=== PATIENT | male | born 1955 | race Caucasian/White ===

== ENCOUNTER 2021-04-08 08:53 | Emergency (ER) | payer OTHER, SELFPAY ==
--- NOTE | ~2021-04-08 | XR_ITS ---
EXAMINATION: XR chest 1V portable DATE: 04/08/2021 09:46 INDICATION: Shortness of breath. Epigastric abdominal pain. TECHNIQUE: A single frontal view of the chest was obtained on 2 radiographs. COMPARISON: CT abdomen 01/21/2008 FINDINGS: The chest demonstrates clear lungs without pneumonia, pleural effusion, or pneumothorax. Th e heart size is normal. IMPRESSION: 1. No acute cardiopulmonary disease. Reviewed, dictated and finalized at location B. ANDROID DEVELOPER
[2021-04-08 08:58] VITALS: BP 168/94; PULSE 76; RESP 21; TEMP 36.6; O2SAT 98
[2021-04-08 09:07] VITALS: PULSE 76
--- NOTE | 2021-04-08 09:18 | ECG_ITS ---
Measurements Intervals [place] Rate: 80 P: 106 UT: 181 QRS: 21 QRSD: 98 T: 23 QT: 359 QTc: 417 Interpretive Statements SINUS RHYTHM BORDERLINE R WAVE PROGRESSION, ANTERIOR LEADS BORDERLINE T WAVE ABNORMALITY- INFERIOR LEADS BASELINE ARTIFACT- I, II, III, AVR, AVL, AVF, V3-V6 BORDERLINE ECG Electronically Signed On 04-08-2021 16:51:08 MANAGER MEDICAL DEVICE by Mingo Thomas D.O.
[2021-04-08 09:37] LABS: Basophils Absolute Auto 0.1 K/mm3 (0.0-0.1); Basophils Percent Auto 0.7 % (0.2-1.2); Eosinophils Absolute Auto 0.2 K/mm3 (0-0.3); Eosinophils Percent Auto 1.8 % (0-4.4); Hematocrit 47.5 % (42.0-52.0); Hemoglobin 16.5 g/dL (14.0-18.0); Immature Granulocyte Absolute 0.04 K/mm3 (0.00-0.031); Immature Granulocyte Percent A 0.3 % (0-0.5); Lymphocytes Absolute Auto 4.56 K/mm3 (0.9-3.2); Lymphocytes Percent Auto 34.2 % (18.3-44.2); Mean Corpuscular HGB Conc 34.7 g/dl (32-36); Mean Corpuscular Hemoglobin 34.2 pg (26-34); Mean Corpuscular Volume 98.5 fl (80-100); Mean Platelet Volume 10.5 fl (7.4-10.4); Monocytes Absolute Auto 0.8 K/mm3 (0.1-0.6); Monocytes Percent Auto 5.8 % (2.6-8.5); Neutrophils Absolute Auto 7.6 K/mm3 (1.3-6.7); Neutrophils Percent Auto 57.2 % (45.5-73.1); Platelet Count Result 253 k/mm3 (150-375); Red Blood Count 4.82 M/mm3 (4.6-6.20); Red Cell Distribution Width 12.8 % (11.5-14.5); White Blood Count 13.3 K/mm3 (4.5-10.0)
[2021-04-08] MEDS: ASPIRIN 81 MG CHEWABLE TABLET 324 MG PO (09:46)
[2021-04-08 10:00] LABS: Alanine Aminotransferase 36 U/L (4-50); Albumin Level 4.1 g/dL (3.5-5.1); Alkaline Phosphatase 102 U/L (38-126); Anion Gap 9 mmol/L (8-16); Aspartate Amino Transferase 37 U/L (17-59); Bilirubin,Total 0.7 mg/dL (0.2-1.3); Blood Urea Nitrogen 15 mg/dL (9-20); Calcium 9.1 mg/dL (8.4-10.2); Carbon Dioxide 24 mmol/L (22-30); Chloride 104 mmol/L (98-107); Estimated CRCL calculation 96 ml/min; Estimated Glomerular Filt Rate > 60; Glucose 108 mg/dL (65-110); Sodium 137 mmol/L (137-145)
[2021-04-08 10:11] LABS: NT Pro B Type Natriuretic Pept 184 pg/mL (5-100); Troponin I < 0.012 ng/mL (0.000-0.034)
[2021-04-08 10:26] LABS: Add Urine Microscopic? YES; Appearance Urine Clear (Clear); Bilirubin Urine Negative (Negative); Blood Urine 1+ (Negative); Color Urine Yellow (Yellow); Glucose Urine UA Negative (Negative); Ketones Urine Trace mg/dL (Negative); Leukocyte Esterase Ur Negative LEU/UL (Negative); Mucus Urine Rare /lpf; Nitrate Urine Negative (Negative); Protein Urine 1+ mg/dL (Negative); RBC Urine 21-50 /hpf (0-2); Specific Grav Ur 1.019 (1.001-1.035); Squamous Epithelial Cell Urine Rare /hpf (Few); WBC Urine 0-3 /hpf
[2021-04-08 10:27] VITALS: BP 168/92; PULSE 67; RESP 22; O2SAT 99
--- NOTE | 2021-04-08 10:33 | ED.GENADULT ---
HPI - General Adult General Chief complaint: Shortness of Breath/Dyspnea <Katty Lechuga PA-C - Last Filed: 04/08/21 15:36> Stated complaint: chest pain <Katty Lechuga PA-C - Last Filed: 04/08/21 15:36> Time Seen by Provider: 04/08/21 09:09 <Katty Lechuga PA-C - Last Filed: 04/08/21 15:36> Source: patient and family () <Katty Lechuga PA-C - Last Filed: 04/08/21 15:36> Mode of arrival: ambulatory <TEVIN Rush Last Filed: 04/08/21 15:36> Limitations: no limitations <Katty Lechuga PA-C - Last Filed: 04/08/21 15:36> History of Present Illness HPI narrative: Patient is a 65 yo male with CC of midsternal chest pain with pressure like sensation that began at 8am. He reports the pain is not present at this time, but the pressure is still present. He denies radiation of pain. Denies hx of htn, [place], or stroke. He has not taken anything to alleviate his symptoms. He reports when the episode first began he was diaphoretic, but that subsided after a few minutes. He reports he is allergic to naproxen, so he thought he was allergic to aspirin because he thought they were the same thing. <Katty Lechuga PA-C - Last Filed: 04/08/21 15:36> Related Data Home medications: Home Medications Medication Instructions Recorded Confirmed No Home Medications 04/08/21 04/08/21 <TEVIN Rush Last Filed: 04/08/21 15:36> Allergies/adverse reactions: Allergies Allergy/AdvReac Type Severity Reaction Status Date / Time aspirin Allergy Mild Swelling Verified 07/30/08 14:30 naproxen AdvReac Abdominal Verified 04/08/21 09:18 Pain [place] Allergy Mild Unknown Uncoded 04/08/21 09:18 <TEVIN Rush Last Filed: 04/08/21 15:36> Review of Systems Review of Systems: CONSTITUTIONAL: Denies fever, chills, or sweats. EYES: Denies visual changes, redness, or discharge. ENT: Denies rhinorrhea, congestion, sore throat, or otalgia. CARDIOVASCULAR:Reports chest pain/pressure , Denies palpitations, or edema. RESPIRATORY: Denies cough GASTROINTESTINAL: Denies abdominal pain, nausea, vomiting, or diarrhea. GENITOURINARY: Denies dysuria or hematuria. SKIN: Denies rash or itching. MUSCULOSKELETAL: Denies back pain, joint pain, or myalgia. NEUROLOGIC: Denies headache, numbness, dizziness, or weakness. PSYCHIATRIC: Denies anxiety or depression. <Katty Lechuga PA-C - Last Filed: 04/08/21 15:36> Exam Narrative: GENERAL: Well-appearing, well-nourished, and in no acute distress or discomfort. HEAD: Normocephalic, atraumatic. EYES: PERRLA and EOMI. ENT: Nares clear, no rhinorrhea or epistaxis. Mucous membranes moist. Oropharynx without tonsillar hypertrophy exudate or other lesions. Bilateral TMs pearly davis nonbulging NECK: Supple. No adenopathy or masses. CHEST: Clear to auscultation. Not tender to palpation. No respiratory distress. No wheezes rales or rhonchi HEART: Regular rate and rhythm. No murmur heard. Normal peripheral pulses. EXTREMITIES: Normal range of motion. No edema. SKIN: Warm, dry, no rash. NEURO: No focal deficits. Alert and oriented x3. PSYCH: Normal mood and affect. <Katty Lechuga PA-C - Last Filed: 04/08/21 15:36> Course Vital Signs Vital signs: Vital Signs Temperature 97.8 F 04/08/21 08:58 Pulse Rate 76 04/08/21 08:58 Respiratory Rate 21 H 04/08/21 08:58 Blood Pressure 168/94 H 04/08/21 08:58 Pulse Oximetry 98 04/08/21 08:58 Temperature 97.8 F 04/08/21 08:58 Pulse Rate 61 04/08/21 13:40 Respiratory Rate 16 04/08/21 13:40 Blood Pressure 162/91 H 04/08/21 13:40 Pulse Oximetry 100 04/08/21 13:40 <Katty Lechuga PA-C - Last Filed: 04/08/21 15:36> Medical Decision Making MDM Narrative Medical decision making narrative: Patient has been without distress in emergency department. Patient's initial troponin and delta troponin are negative. Patient states that his discomfort has res
[2021-04-08 10:42] LABS: Amphetamine Screen Urine Negative (Negative); Barbiturate Screen Urine Negative (Negative); Benzodiazepines Screen Urine Negative (Negative); Cannabinoid Screen Urine Negative (Negative); Cocaine Screen Urine Negative (Negative); Methadone Screen Urine Negative (Negative); Opiate Screen Urine Negative (Negative); Phencyclidine Screen Urine Negative (Negative)
[2021-04-08 12:06] VITALS: BP 148/86; PULSE 69; RESP 19; O2SAT 99
[2021-04-08 12:46] LABS: Troponin I < 0.012 ng/mL (0.000-0.034)
[2021-04-08 13:40] VITALS: BP 162/91; PULSE 61; RESP 16; O2SAT 100
== END 2021-04-08 13:40 | disposition home or self-care (01) ==
PROVIDERS: Physician Assistant; Emergency Provider General Practice
DX: R07.2 Precordial pain (principal); R94.31 Abnormal electrocardiogram [ECG] [EKG]
CPT/HCPCS: 36415; 71045; 80053; 80307; 81001; 83880; 84484; 85025; 93005; 99284; A9270

== ENCOUNTER 2021-06-04 16:27 | Emergency (ER) | payer OTHER, SELFPAY ==
[2021-06-04 16:36] VITALS: BP 167/95; PULSE 80; RESP 16; TEMP 37; O2SAT 100
--- NOTE | 2021-06-04 17:05 | ED.ALLEREA ---
HPI - Allergic Reaction General Chief complaint: Allergic Reaction Stated complaint: allergic reaction to clinda?? Time Seen by Provider: 06/04/21 16:52 History of Present Illness HPI narrative: Patient presents to the emergency room with an acute onset of pruritic rash on his torso that started today. Patient states he has been on clindamycin 4 times daily for 1 week for an infected tooth. Denies shortness of breath difficulty breathing chest pain. Related Data Home Medications Medication Instructions Recorded Confirmed hydrocodone-acetaminophen 06/04/21 Allergies Allergy/AdvReac Type Severity Reaction Status Date / Time aspirin Allergy Mild Swelling Verified 07/30/08 14:30 naproxen AdvReac Abdominal Verified 04/08/21 09:18 Pain Yellow [place]et Allergy Mild Unknown Uncoded 04/08/21 09:18 Review of Systems Review of Systems: CONSTITUTIONAL: Denies fever, chills, or sweats. EYES: Denies visual changes, redness, or discharge. ENT: Denies rhinorrhea, congestion, sore throat, or otalgia. CARDIOVASCULAR: Denies chest pain, palpitations, or edema. RESPIRATORY: Denies cough or dyspnea. GASTROINTESTINAL: Denies abdominal pain, nausea, vomiting, or diarrhea. GENITOURINARY: Denies dysuria or hematuria. SKIN: Per HPI. MUSCULOSKELETAL: Denies back pain, joint pain, or myalgia. NEUROLOGIC: Denies headache, numbness, dizziness, or weakness. PSYCHIATRIC: Denies anxiety or depression. Exam Narrative: GENERAL: Well-appearing, well-nourished, and in no acute distress. HEAD: Normocephalic, atraumatic. EYES: PERRLA and EOMI. ENT: Nares clear, no rhinorrhea or epistaxis. Mucous membranes moist. Oropharynx without tonsillar hypertrophy exudate or other lesions. Bilateral TMs pearly davis nonbulging NECK: Supple. No adenopathy or masses. No carotid bruits or JVD CHEST: Clear to auscultation. No respiratory distress. No wheezes rales or rhonchi HEART: Regular rate and rhythm. No murmur heard. Normal peripheral pulses. ABDOMEN: Soft, nontender, nondistended, normal active bowel sounds. EXTREMITIES: Normal range of motion. No edema. SKIN: Diffuse erythematous maculopapular hives to anterior torso. NEURO: No focal deficits. Alert and oriented x3. PSYCH: Normal mood and affect. Course Course Emergency Course: Patient presented with urticaria to the chest status post 1 week of clindamycin use inserted IV given we will fluids given Benadryl Solu-Medrol and famotidine for allergic reaction patient tolerated well rash is resolved we will send patient home on prescription for prednisone and Benadryl. Vital Signs Vital signs: Vital Signs Temperature 37.0 C 06/04/21 16:36 Pulse Rate 80 06/04/21 16:36 Respiratory Rate 16 06/04/21 16:36 Blood Pressure 167/95 H 06/04/21 16:36 Pulse Oximetry 100 06/04/21 16:36 Temperature 37.0 C 06/04/21 16:36 Pulse Rate 80 06/04/21 16:36 Respiratory Rate 16 06/04/21 16:36 Blood Pressure 167/95 H 06/04/21 16:36 Pulse Oximetry 100 06/04/21 16:36 MDM - Allergic Reaction MDM Narrative Medical decision making narrative: Patient responded well to Solu-Medrol Benadryl famotidine. We will send patient home on 5-day course of prednisone Benadryl. Demonstrated no shortness of breath difficulty breathing Lab Data Result diagrams: 06/04/21 17:50 06/04/21 17:50 Labs: Lab Results 06/04/21 06/04/21 Range/Units 17:50 17:50 WBC Pending RBC Pending Hgb Pending Hct Pending MCV Pending MCH Pending MCHC Pending RDW Pending Plt Count Pending MPV Pending Immature Gran % (Auto) Pending Neut % (Auto) Pending Lymph % (Auto) Pending [place] % (Auto) Pending Eos % (Auto) Pending Baso % (Auto) Pending Lymph # (Auto) Pending [place] # (Auto) Pending Eos # (Auto) Pending Baso # (Auto) Pending Abs Immat Gran (auto) Pending Absolute Neuts (auto) Pending Absolute Nuclea
[2021-06-04] MEDS: methylPREDNISolone SOD SUCC 125 MG VIAL IV PUSH (17:34)
[2021-06-04] MEDS: diphenhydrAMINE HCl INJ 50 MG/ML VIAL 25 MG IV PUSH (17:34)
[2021-06-04] MEDS: FAMOTIDINE 20 MG/2 ML VIAL IV PUSH (17:35)
[2021-06-04] MEDS: SODIUM CHLORIDE 0.9% IV 1,000 ML 999 ML IV CONT (17:36)
[2021-06-04 18:06] LABS: Basophils Absolute Auto 0.1 K/mm3 (0.0-0.1); Basophils Percent Auto 0.6 % (0.2-1.2); Eosinophils Absolute Auto 0.3 K/mm3 (0-0.3); Eosinophils Percent Auto 2.4 % (0-4.4); Hematocrit 50.3 % (42.0-52.0); Hemoglobin 17.4 g/dL (14.0-18.0); Immature Granulocyte Absolute 0.05 K/mm3 (0.00-0.031); Immature Granulocyte Percent A 0.4 % (0-0.5); Lymphocytes Absolute Auto 6.16 K/mm3 (0.9-3.2); Lymphocytes Percent Auto 45.5 % (18.3-44.2); Mean Corpuscular HGB Conc 34.6 g/dl (32-36); Mean Corpuscular Hemoglobin 34.9 pg (26-34); Mean Platelet Volume 10.3 fl (7.4-10.4); Monocytes Absolute Auto 0.8 K/mm3 (0.1-0.6); Monocytes Percent Auto 6.1 % (2.6-8.5); Neutrophils Absolute Auto 6.1 K/mm3 (1.3-6.7); Platelet Count Result 249 k/mm3 (150-375); Red Blood Count 4.98 M/mm3 (4.6-6.20); Red Cell Distribution Width 13.7 % (11.5-14.5); White Blood Count 13.5 K/mm3 (4.5-10.0)
[2021-06-04 18:16] LABS: Alanine Aminotransferase 35 U/L (4-50); Albumin Level 4.2 g/dL (3.5-5.1); Alkaline Phosphatase 85 U/L (38-126); Anion Gap 8 mmol/L (8-16); Aspartate Amino Transferase 37 U/L (17-59); Bilirubin,Total 1.1 mg/dL (0.2-1.3); Blood Urea Nitrogen 13 mg/dL (9-20); Calcium 9.2 mg/dL (8.4-10.2); Carbon Dioxide 23 mmol/L (22-30); Chloride 105 mmol/L (98-107); Estimated CRCL calculation 99 ml/min; Estimated Glomerular Filt Rate > 60; Glucose 98 mg/dL (65-110); Potassium 3.6 mmol/L (3.4-5.0); Sodium 136 mmol/L (137-145)
[2021-06-04 18:41] VITALS: BP 148/82; PULSE 72; RESP 18; O2SAT 97
== END 2021-06-04 18:41 | disposition home or self-care (01) ==
PROVIDERS: Emergency Provider Nurse Practitioner Family
DX: L50.0 Allergic urticaria (principal); T36.8X5A Adverse effect of other systemic antibiotics, initial encounter
CPT/HCPCS: 36415; 80053; 85025; 96361; 96374; 96375; 99284; J1200; J2930; J7030

== ENCOUNTER 2023-05-04 14:50 | Outpatient (CLI) | payer MEDICARE, SELFPAY ==
--- NOTE | ~2023-05-04 | CT_ITS ---
EXAMINATION: CT abdomen pelvis wo con DATE: 05/04/2023 15:18 INDICATION: Left flank pain TECHNIQUE: Computed tomography (CT) of the abdomen and pelvis was performed without intravenous contr ast. The dose-length product (DLP) was 810.47 mGy-cm. Automated exposure control and iterative recons truction technique were employed. COMPARISON: 01/21/2008 FINDINGS: There is an area of chronic scarring in the lingula. The heart size is normal. Changes of c holecystectomy are noted. There is a 7 mm cyst in the left hepatic lobe. The spleen, pancreas, and ad renal glands are normal. The right kidney is unremarkable. There are nonobstructing stones of the lef t kidney measuring 4 mm and 6 mm. There is a 5 cm peripelvic cyst of the left kidney. There are no st ones in the ureters or bladder. No hydronephrosis or hydroureter. No pathologically enlarged abdomina l or pelvic lymph nodes are identified. No free intraperitoneal gas or evidence of bowel obstruction. The appendix is normal. There is severe lumbar spondylosis. There is a small umbilical hernia contai viki fat. IMPRESSION: 1. No CT correlate for the patient's symptoms. Nonobstructing left nephrolithiasis. Reviewed, dictated and finalized at location F. MINER BLASTING IMPRESSION: 1. No CT correlate for the patient's symptoms. Nonobstructing left nephrolithia sis.
--- NOTE | ~2023-05-04 | XR_ITS ---
EXAMINATION: XR abdomen/kub 1V INDICATION: Left flank pain TECHNIQUE: Supine views of the abdomen were obtained on 2 radiographs. COMPARISON: CT from today FINDINGS: A 3 mm stone is noted in the left mid kidney. The additional stone described on today's CT is not definitely identified. The bowel gas pattern is normal. Cholecystectomy clips are noted. There is severe lumbar spondylosis. IMPRESSION: 1. Left nephrolithiasis. Reviewed, dictated and finalized at location F. PERSON IMPRESSION: 1. Left nephrolithiasis.
== END 2023-05-04 14:51 | disposition home or self-care (01) ==
PROVIDERS: Visit Provider Nurse Practitioner Family
DX: N20.0 Calculus of kidney (principal)
CPT/HCPCS: 74018; 74176

== ENCOUNTER 2023-05-17 13:39 | Outpatient (CLI) | payer MEDICARE, SELFPAY ==
--- NOTE | ~2023-05-17 | MR_ITS ---
EXAMINATION: MR abdomen wo/w con DATE: 05/17/2023 14:55 INDICATION: Left renal cyst. Abdominal pain. TECHNIQUE: Magnetic resonance imaging (MRI) of the abdomen was performed without and with 20 mL Multi Kirk intravenous contrast. COMPARISON: CT abdomen and pelvis 05/04/2023 FINDINGS: There is a 9 mm cyst in the liver. The gallbladder is absent. The spleen, pancreas, and adrenal gland s are normal. There are cysts in the kidneys measuring up to 4.6 cm on the left. There are no patholo gically enlarged lymph nodes. There is no free intraperitoneal fluid. There are no dilated loops of b owel. IMPRESSION: 1. Benign cysts in the kidneys. Reviewed, dictated and finalized at location A. GER CONSUMER INSIGHTS
== END 2023-05-17 13:40 | disposition home or self-care (01) ==
PROVIDERS: Visit Provider Nurse Practitioner Family
DX: N28.1 Cyst of kidney, acquired (principal)
CPT/HCPCS: 74183; A9577

== ENCOUNTER 2025-01-25 10:57 | Emergency (ER) | payer MEDICARE, MEDICAID, SELFPAY ==
--- NOTE | ~2025-01-25 | XR_ITS ---
Examination: XR chest 2V Clinical History: CP Comparison: 04/08/2021 Technique: PA and Lateral Findings: Cardiomediastinal silhouette normal size and configuration. Minimal bibasilar scarring. Lungs otherwise clear. No acute bony abnormality. Osteopenia. IMPRESSION: 1. No acute cardiopulmonary findings. Reviewed, dictated and finalized at location R.
--- NOTE | 2025-01-25 10:58 | ECG_ITS ---
Test Date: 2025-01-25 11:01:43 Measurements Intervals [place] Rate: 78 P: 63 DC: 219 QRS: -9 QRSD: 91 T: 31 QT: 370 QTc: 423 Interpretive Statements SINUS RHYTHM WITH SINUS ARRHYTHMIA WITH FIRST DEGREE AV BLOCK INCOMPLETE RIGHT BUNDLE BRANCH BLOCK LOW QRS VOLTAGE IN PRECORDIAL LEADS POSSIBLE ANTERIOR MYOCARDIAL INFARCTION , PROBABLY OLD BASELINE ARTIFACT- I, III, AVL, AVF ABNORMAL ECG No previous ECG available for comparison Electronically Signed On 01-25-2025 15:45:24 CDT by Mingo Thomas D.O.
[2025-01-25 10:59] VITALS: BP 136/78; PULSE 72; RESP 18; TEMP 36.6; O2SAT 99
[2025-01-25 11:16] LABS: Hematocrit 40.1 % (42.0-52.0); Hemoglobin 14.1 g/dL (14.0-18.0); Immature Granulocyte Percent A 0.3 % (0-0.5); Lymphocytes Absolute Auto 3.41 K/mm3 (0.9-3.2); Mean Corpuscular HGB Conc 35.2 g/dl (32-36); Mean Corpuscular Hemoglobin 33.3 pg (26-34); Mean Corpuscular Volume 94.8 fl (80-100); Nucleated Red Blood Cells Absolute Auto 0.000 K/mm3 (0.0-0.012); Nucleated Red Blood Cells Perc 0.0 % (0.0-0.2); Platelet Count Result 295 k/mm3 (150-375); Red Blood Count 4.23 M/mm3 (4.6-6.20); White Blood Count 13.1 K/mm3 (4.5-10.0)
[2025-01-25 11:31] LABS: INR 1.0; Prothrombin Time 13.7 Seconds (11.1-14.7)
[2025-01-25 11:32] LABS: Partial Thromboplastin Time 32.9 Seconds (22.3-36.8)
[2025-01-25 11:53] LABS: Alanine Aminotransferase 19 U/L (6-50); Albumin Level 4.0 g/dL (3.5-5.1); Alkaline Phosphatase 79 U/L (38-126); Anion Gap 7 mmol/L (4-12); Aspartate Amino Transferase 31 U/L (17-59); Bilirubin,Total 0.9 mg/dL (0.2-1.3); Blood Urea Nitrogen 11 mg/dL (9-20); Calcium 8.9 mg/dL (8.4-10.2); Carbon Dioxide 25 mmol/L (22-30); Chloride 93 mmol/L (98-107); Estimated CRCL calculation 119 ml/min; Estimated Glomerular Filt Rate > 60; Glucose 120 mg/dL (65-110); Lipase 51 U/L (23-300); Potassium 4.0 mmol/L (3.4-5.0); Sodium 125 mmol/L (137-145); Total Protein 7.3 g/dL (6.3-8.2)
[2025-01-25 12:03] LABS: Troponin I < 0.012 ng/mL (0.000-0.034)
[2025-01-25 12:21] VITALS: BP 118/78; PULSE 58; RESP 18; O2SAT 100
--- NOTE | 2025-01-25 12:32 | PC.NURSE ---
Pt declines being in hospital gown or having BP cuff on continously, agrees to intermittent vital checks.
--- NOTE | 2025-01-25 13:47 | ECG_ITS ---
Test Date: 2025-01-25 13:54:59 Measurements Intervals [place] Rate: 54 P: 55 MD: 214 QRS: 22 QRSD: 109 T: 83 QT: 425 QTc: 406 Interpretive Statements SINUS BRADYCARDIA WITH FIRST DEGREE AV BLOCK LOW QRS VOLTAGE IN PRECORDIAL LEADS POSSIBLE ANTERIOR MYOCARDIAL INFARCTION , OF INDETERMINATE AGE BASELINE ARTIFACT- I, II, III, AVR, AVL, AVF, V1-V6 ABNORMAL ECG Compared to ECG 01/25/2025 11:01:43 HEART RATE HAS DECREASED Electronically Signed On 01-25-2025 15:56:32 CDT by Mingo Thomas D.O.
--- NOTE | 2025-01-25 13:54 | PC.NURSE ---
This RN went in to pt room to redraw blood for 3hr troponin. Pt agreeable to blood and repeat EKG but states he is going to leave immediately after. Pt reports he is not going to stay for results. made aware.
[2025-01-25 14:00] VITALS: BP 129/75; PULSE 59; RESP 18; O2SAT 97
[2025-01-25 14:40] LABS: Troponin I < 0.012 ng/mL (0.000-0.034)
--- NOTE | 2025-01-25 15:09 | ED.CHESTPAIN ---
HPI - Chest Pain General Chief Complaint: Chest Pain Stated Complaint: CP Time Seen by Provider: 01/25/25 12:17 History of Present Illness HPI narrative: Around 10 this morning, patient had a sudden episode of sharp chest pain, lasted a few minutes, he felt flushed afterwards and felt like it was going to his neck and left arm, and then went away, he is currently not having any symptoms whatsoever. He says this has happened to him in the past, usually after he is on antibiotics because it upsets his stomach, he is currently finishing antibiotics. Related Data Home Medications ?Medication ?Instructions ?Recorded ?Confirmed ?Last Taken ?Type hydrocodone 5 mg-acetaminophen 325 06/04/21 Unknown History mg tablet Allergies Allergy/AdvReac Type Severity Reaction Status Date / Time aspirin Allergy Mild Swelling Verified 07/30/08 14:30 naproxen AdvReac Abdominal Verified 04/08/21 09:18 Pain Yellow [place] Allergy Mild Unknown Uncoded 04/08/21 09:18 Review of Systems Review of Systems: All systems reviewed & are unremarkable except as noted in HPI and below Exam Narrative: EXAMINATION OF ORGAN SYSTEMS/BODY AREAS: Constitutional: Vital signs per nursing GENERAL:[No acute distress, non-toxic appearing.] HEAD: Normal with no signs of head trauma. EYES: EOMI, conjunctiva normal ENT: Hearing grossly intact LUNGS: Nonlabored breathing. HEART: [Regular rate and rhythm], normal bilateral radial and DP pulses ABD: [Soft], [nontender to palpation] EXT: Normal range of motion SKIN: [No rashes or lesions.] NEURO: [Alert and oriented x 3. No gross focal sensory or strength deficits.] PSYCH: Normal affect Course Vital Signs Vital signs: Vital Signs Temperature 97.8 F 01/25/25 10:59 Pulse Rate 72 01/25/25 10:59 Respiratory Rate 18 01/25/25 10:59 Blood Pressure 136/78 01/25/25 10:59 Pulse Oximetry 99 01/25/25 10:59 Oxygen Delivery Room Air 01/25/25 10:59 Temperature 97.8 F 01/25/25 10:59 Pulse Rate 59 L 01/25/25 14:00 Respiratory Rate 18 01/25/25 14:00 Blood Pressure 129/75 01/25/25 14:00 Pulse Oximetry 97 01/25/25 14:00 Oxygen Delivery Room Air 01/25/25 12:21 MDM - Chest Pain MDM Narrative Medical decision making narrative: ED COURSE AND MEDICAL DECISION MAKIN-year-old male presenting with chest pain. EKG done in triage negative for acute ischemic changes. Cardiac workup is initiated. EKG: Performed in triage and interpreted by me. Normal sinus rhythm. Rate 78. Normal axis. CA 219. QRS duration normal. QTc normal. No pathologic Q waves. No ST segment elevation or depression to suggest acute ischemia. No RV strain pattern. HEART score is 3 with no acute ischemic changes on EKG and two negative troponin making ACS unlikely. Wells low risk with no DVT symptoms and no shortness of breath making PE unlikely. Presentation not consistent with dissection or aneurysm without radiation of pain or pulse deficits. CXR negative for mediastinal widening. No abdominal pain or signs of sepsis that would be concerning for esophageal perforation or mediastinitis. No cardiomegaly or JVD to suggest pericardial effusion/tamponade. Repeat 3 hour EKG - 12-Lead: Performed at 1354. Interpreted by me. Sinus bradycardia rate 54. [Normal] axis. CA-interval 214. QRS duration [normal]. QTc [normal]. [No ST segment elevation or depression]. No obvious changes from prior EKG. Impression: No EKG evidence of acute ischemia or dysrhythmia. On repeat evaluation just prior to discharge, the patient is no acute distress. He still does not have any chest pain or any other symptoms. He is requesting to go home at this time; he understands the risks of this including possible missed or delayed diagnosis; he does not want to stay, he is alert and oriented x4, makes his own medical decisions, not acutely psychotic, and left know he can always return to the emergency room if he changes his mind, and I did provide follow-up to trimmer operator. Lab Data 01/25/25 11:07 01/25/25 11:07 Labs: Lab Results 01/25/25 01/25/25 Range/Units 11:07 13:56 WBC 13.1 H (4.5-10.0) K/mm3 RBC 4.23 L (4.6-6.20) M/mm3 Hgb 14.1 D (14.0-18.0) g/dL Hct 40.1 L (42.0-52.0) % MCV 94.8 (80-100) fl MCH 33.3 (26-34) pg MCHC 35.2 (32-36) g/dl RDW 12.0 (11.5-14.5) % Plt Count 295 (150-375) k/mm3 MPV 9.6 (7.4-10.4) fl Immature Gran % (Auto) 0.3 (0-0.5) % Neut % (Auto) 63.9 (45.5-73.1) % Lymph % (Auto) 26.1 (18.3-44.2) % [place] % (Auto) 4.2 (2.6-8.5) % Eos % (Auto) 5.0 H (0-4.4) % Baso % (Auto) 0.5 (0.2-1.2) % Lymph # (Auto) 3.41 H (0.9-3.2) K/mm3 [place] # (Auto) 0.6 (0.1-0.6) K/mm3 Eos # (Auto) 0.7 H (0-0.3) K/mm3 Baso # (Auto) 0.1 (0.0-0.1) K/mm3 Abs Immat Gran (auto) 0.04 H (0.00-0.031) K/mm3 Absolute Neuts (auto) 8.4 H (1.3-6.7) K/mm3 Absolute Nucleated RBC 0.000 (0.0-0.012) K/mm3 Nucleated RBC % 0.0 (0.0-0.2) % PT 13.7 (11.1-14.7) Seconds INR 1.0 APTT 32.9 (22.3-36.8) Seconds Sodium 125 L (137-145) mmol/L Potassium 4.0 (3.4-5.0) mmol/L Chloride 93 L (98-107) mmol/L Carbon Dioxide 25 (22-30) mmol/L Anion Gap 7 (4-12) mmol/L BUN 11 (9-20) mg/dL Creatinine 0.76 (0.7-1.3) mg/dL Estim Creat Clear Calc 119 ml/min Estimated GFR > 60 (59 - ) Glucose 120 H (65-110) mg/dL Calcium 8.9 (8.4-10.2) mg/dL Total Bilirubin 0.9 (0.2-1.3) mg/dL AST 31 (17-59) U/L ALT 19 (6-50) U/L Alkaline Phosphatase 79 (38-126) U/L Troponin I < 0.012 < 0.012 (0.000-0.034) ng/mL Total Protein 7.3 (6.3-8.2) g/dL Albumin 4.0 (3.5-5.1) g/dL Lipase 51 (23-300) U/L Discharge Plan Discharge Clinical Impression: Chest pain Patient Disposition: Left Against Medical Advice Condition: Stable Instructions: Chest Pain (ED) Additional Instructions: You are leaving before completion of workup. You understand the risks of this, including missed diagnosis, leading to possible permanent disability or . Please follow-up with the trimmer operator, if you change your mind you can always return to the emergency room. Patient Language: Maltese Prescriptions: New famotidine 20 mg tablet 20 mg PO DAILY Qty: 30 0RF No Action hydrocodone-acetaminophen 5-325 mg tablet prednisone 20 mg tablet 40 mg PO DAILY Qty: 10 0RF diphenhydramine HCl [Benadryl] 25 mg capsule 25 mg PO TID PRN (Reason: allergic reaction) Qty: 15 0RF Follow-up/Referrals: You Campbell MD [Physician, Cardiology] - 2 Days PHYSICIAN,SENIOR CLINICAL STUDY MANAGER [Primary Care Provider, Internal Medicine]
== END 2025-01-25 14:06 | disposition left against medical advice (07) ==
PROVIDERS: Emergency Medicine; Emergency Provider Emergency Medicine
DX: R07.9 Chest pain, unspecified (principal); R00.1 Bradycardia, unspecified; R94.31 Abnormal electrocardiogram [ECG] [EKG]; I44.0 Atrioventricular block, first degree
CPT/HCPCS: 36415; 71046; 80053; 83690; 84484; 85025; 85610; 85730; 93005; 99284